=== PATIENT | female | born 1990 | race Two or more races ===

== ENCOUNTER 2025-05-14 20:38 | Emergency (ER) | payer MEDICAID ==
[2025-05-14 20:58] VITALS: PULSE 82; RESP 20; O2SAT 100
== END 2025-05-14 21:42 | disposition left against medical advice (07) ==
LOC: ER 20:38
DX: R10.9 Unspecified abdominal pain (principal); Z53.21 Procedure and treatment not carried out due to patient leaving prior to being seen by health care provider